=== PATIENT | female | born 1965 | race Caucasian/White ===

== ENCOUNTER 2025-01-26 11:07 | Inpatient (IN) ==
[2025-01-26] MEDS ORDERED: IOPAMIDOL 100 ML BOTTLE IV ONE (11:08)
[2025-01-26] MEDS: LORazepam 2 MG/ML VIAL IV ONE (11:38)
[2025-01-26 12:07] LABS: Alcohol, Blood 50.9 mg/dL; Alcohol,Blood 0.051 gm/dL (<0.010)
[2025-01-26 12:10] LABS: ALT/SGPT 49 U/L (<40); AST/SGOT 66 U/L (<32); Albumin 2.4 gm/dL (3.2-5.2); Albumin/Globulin Ratio 0.5 (1.0-2.3); Alkaline Phosphatase 139 U/L (39-117); Bilirubin,Total 6.5 mg/dL (0.1-1.0); Blood Urea Nitrogen 14 mg/dL (6-20); Calcium 8.3 mg/dL (8.6-10.4); Carbon Dioxide 18 mmol/L (22-30); Chloride 103 mmol/L (96-108); Globulin 5.3 gm/dL (2.2-3.7); Glomerular Filtration Rate 62; Glucose 174 mg/dL (70-105); Potassium 3.7 mmol/L (3.3-5.1); Sodium 138 mmol/L (133-145)
[2025-01-26] MEDS: FUROSEMIDE 40 MG/4 ML VIAL IV ONE (12:19)
[2025-01-26 12:22] LABS: Basophils # (Auto) 0.02 K/mcL (0.00-0.30); Basophils % (Auto) 0.5 % (0.0-2.0); Eosinophils # (Auto) 0.01 K/mcL (0.00-0.70); Eosinophils % (Auto) 0.2 % (0.0-7.0); Hemoglobin 8.5 g/dL (11.2-15.7); Lymphocytes # (Auto) 1.27 K/mcL (1.50-4.80); Lymphocytes % (Auto) 30.2 % (15.5-49.0); Mean Cell Volume 132.7 fL (80.0-100.0); Mean Corpuscular HGB Conc 30.4 g/dL (31.0-36.0); Mean Platelet Volume 12.1 fL (8.8-12.5); Monocytes # (Auto) 0.54 K/mcL (0.10-0.90); Monocytes % (Auto) 12.9 % (1.0-12.0); Platelet Count 57 K/mcL (140-440); RBC 2.11 M/mcL (3.59-5.38); Red Cell Distribution Width 18.1 % (11.5-14.5); WBC 4.2 K/mcL (4.5-11.0)
[2025-01-26 12:44] LABS: INR 2.4 (0.9-1.1)
[2025-01-26] MEDS: MAGNESIUM OXIDE 400 MG TABLET PO ONE (14:20)
[2025-01-26] MEDS: THIAMINE 300 MG in 0.9 % SODIUM CHLORIDE 50 ML IV ONE (14:20)
[2025-01-26 14:33] LABS: Appearance,Urine Clear (Clear); Bacteria,Urine 0 /hpf (0); Bilirubin,Urine Negative (Negative); Color,Urine Yellow; Glucose,Urine (UA) Negative (Negative); Ketones,Urine Negative (Negative); Leukocyte Esterase,Urine Negative /uL (Negative); Nitrate,Urine Negative (Negative); PH,Urine 5.5 (5.0-9.0); Protein,Urine Negative (Negative); Specific Gravity,Urine <= 1.005 (1.000-1.035); Urine Blood Trace-lysed ery/mcL (Negative); Urine RBC 0 /hpf (0-3); Urine Squamous Epithelial Cell 2 /hpf (0-4); Urine WBC 2 /hpf (0-4); Urobilinogen,Urine Normal
[2025-01-26] MEDS: ALBUMIN HUMAN 37.5 GM/150 ML IV ONE (16:11)
[2025-01-26] MEDS: LACTULOSE 20 GM/30 ML ORAL.SOL PO SCH (17:51)
[2025-01-26] MEDS: GABAPENTIN 300 MG CAPSULE PO SCH (17:51)
[2025-01-26 17:57] LABS: pH,Body Fluid 7.67
[2025-01-26 18:18] LABS: Amylase,Peritoneal Fluid 6 U/L; Glucose,Peritoneal Fluid 166 mg/dL; LDH,Peritoneal Fluid 45 U/L; Total Protein,Peritoneal Fluid 0.6 gm/dL
[2025-01-26 18:51] LABS: Monocyte,Peritoneal Fluid 42 %; Neutrophils,Peritoneal Fluid 2 %; RBC,Peritoneal Fluid <50,000 /cumm
[2025-01-26] MEDS ORDERED: DIAZEPAM 10 MG/2 ML SYRINGE IV PRN (19:40)
[2025-01-26] MEDS: BACLOFEN 10 MG TABLET PO PRN (20:13)
[2025-01-26] MEDS: LORazepam 1 MG TABLET PO ONE (20:13)
[2025-01-26] MEDS ORDERED: 0.9 % SODIUM CHLORIDE 10 ML SYRINGE IV SCH (22:00)
[2025-01-26] MEDS: 0.9 % SODIUM CHLORIDE 10 ML SYRINGE IV SCH (22:04)
[2025-01-27 06:52] LABS: INR 3.1 (0.9-1.1); Prothrombin Time 34.7 sec (11.9-14.5)
[2025-01-27 06:58] LABS: Basophils # (Auto) 0 K/mcL (0.00-0.30); Basophils % (Auto) 0 % (0.0-2.0); Eosinophils # (Auto) 0.02 K/mcL (0.00-0.70); Eosinophils % (Auto) 0.9 % (0.0-7.0); Hematocrit 20.7 % (34.1-44.9); Hemoglobin 6.3 g/dL (11.2-15.7); Lymphocytes # (Auto) 0.88 K/mcL (1.50-4.80); Lymphocytes % (Auto) 37.8 % (15.5-49.0); Mean Corpuscular HGB Conc 30.4 g/dL (31.0-36.0); Mean Platelet Volume 11.2 fL (8.8-12.5); Monocytes # (Auto) 0.26 K/mcL (0.10-0.90); Monocytes % (Auto) 11.2 % (1.0-12.0); Neutrophils % (Auto) 49.7 % (38.0-78.0); Platelet Count 38 K/mcL (140-440); RBC 1.58 M/mcL (3.59-5.38); Red Cell Distribution Width 18.3 % (11.5-14.5); WBC 2.3 K/mcL (4.5-11.0)
[2025-01-27 07:03] LABS: ALT/SGPT 36 U/L (<40); AST/SGOT 60 U/L (<32); Albumin 2.1 gm/dL (3.2-5.2); Albumin/Globulin Ratio 0.6 (1.0-2.3); Alkaline Phosphatase 95 U/L (39-117); Bilirubin,Direct 2.3 mg/dL (<0.3); Bilirubin,Total 7.1 mg/dL (0.1-1.0); Blood Urea Nitrogen 14 mg/dL (6-20); Calcium 8.1 mg/dL (8.6-10.4); Carbon Dioxide 25 mmol/L (22-30); Chloride 107 mmol/L (96-108); Globulin 3.7 gm/dL (2.2-3.7); Glomerular Filtration Rate 70; Glucose 117 mg/dL (70-105); Lactate Dehydrogenase 303 U/L (135-225); Phosphorous 3.1 mg/dL (2.5-4.5); Potassium 3.5 mmol/L (3.3-5.1); Sodium 140 mmol/L (133-145); Triglycerides 56 mg/dL (<150); Uric Acid 12.5 mg/dL (2.5-8.0)
[2025-01-27 08:34] LABS: Hematocrit 22.1 % (34.1-44.9); Hemoglobin 6.6 g/dL (11.2-15.7)
[2025-01-27] MEDS: MAGNESIUM SULFATE 1 GM/100 ML BAG IV SCH (08:40)
[2025-01-27] MEDS: THIAMINE 100 MG in 0.9 % SODIUM CHLORIDE 50 ML IV SCH (08:40)
[2025-01-27] MEDS: PANTOPRAZOLE 40 MG VIAL IV SCH (08:40)
[2025-01-27] MEDS: MULTIVIT,THER IRON,CA,FA & MIN 1 TABLET PO SCH (08:41)
[2025-01-27] MEDS: FOLIC ACID 1 MG TABLET PO SCH (08:41)
[2025-01-27] MEDS: SPIRONOLACTONE 25 MG TABLET PO SCH (08:41)
[2025-01-27] MEDS: FUROSEMIDE 40 MG/4 ML VIAL IV SCH (08:41)
[2025-01-27] MEDS: 0.9 % SODIUM CHLORIDE 250 ML IV SCH ×2 (10:44)
[2025-01-27] MEDS: PHYTONADIONE 10 MG in 0.9 % SODIUM CHLORIDE 50 ML IV ONE (13:57)
[2025-01-27] MEDS: FUROSEMIDE 40 MG/4 ML VIAL IV ONE (20:59)
[2025-01-27 22:04] LABS: Hematocrit 24.8 % (34.1-44.9); Hemoglobin 7.5 g/dL (11.2-15.7)
[2025-01-28] MEDS: LORazepam 1 MG TABLET PO PRN (00:45)
[2025-01-28] MEDS: ONDANSETRON 4 MG/2 ML VIAL IV PRN (05:33)
[2025-01-28 06:54] LABS: INR 2.9 (0.9-1.1)
[2025-01-28 07:04] LABS: ALT/SGPT 30 U/L (<40); AST/SGOT 47 U/L (<32); Albumin 1.9 gm/dL (3.2-5.2); Albumin/Globulin Ratio 0.5 (1.0-2.3); Alkaline Phosphatase 108 U/L (39-117); Bilirubin,Direct 2.3 mg/dL (<0.3); Bilirubin,Total 6.8 mg/dL (0.1-1.0); Blood Urea Nitrogen 14 mg/dL (6-20); Calcium 7.8 mg/dL (8.6-10.4); Carbon Dioxide 23 mmol/L (22-30); Chloride 107 mmol/L (96-108); Globulin 3.9 gm/dL (2.2-3.7); Glomerular Filtration Rate 70; Glucose 148 mg/dL (70-105); Lactate Dehydrogenase 318 U/L (135-225); Phosphorous 2.6 mg/dL (2.5-4.5); Potassium 3.7 mmol/L (3.3-5.1); Sodium 138 mmol/L (133-145); Triglycerides 54 mg/dL (<150); Uric Acid 12.2 mg/dL (2.5-8.0)
[2025-01-28 07:56] LABS: Basophils # (Auto) 0.02 K/mcL (0.00-0.30); Basophils % (Auto) 0.7 % (0.0-2.0); Eosinophils # (Auto) 0.03 K/mcL (0.00-0.70); Eosinophils % (Auto) 1.1 % (0.0-7.0); Hematocrit 23.5 % (34.1-44.9); Hemoglobin 7.3 g/dL (11.2-15.7); Lymphocytes # (Auto) 1.25 K/mcL (1.50-4.80); Lymphocytes % (Auto) 46.5 % (15.5-49.0); Mean Cell Volume 122.4 fL (80.0-100.0); Mean Corpuscular HGB Conc 31.1 g/dL (31.0-36.0); Mean Platelet Volume 12.8 fL (8.8-12.5); Monocytes # (Auto) 0.23 K/mcL (0.10-0.90); Monocytes % (Auto) 8.6 % (1.0-12.0); Neutrophils % (Auto) 42.7 % (38.0-78.0); Platelet Count 41 K/mcL (140-440); RBC 1.92 M/mcL (3.59-5.38); WBC 2.7 K/mcL (4.5-11.0)
[2025-01-28] MEDS: GABAPENTIN 300 MG CAPSULE PO ONE (09:39)
[2025-01-28] MEDS: GABAPENTIN 300 MG CAPSULE PO SCH (16:02)
[2025-01-28] MEDS: FUROSEMIDE 40 MG/4 ML VIAL IV ONE (17:51)
[2025-01-29 07:27] LABS: INR 2.4 (0.9-1.1); Prothrombin Time 28.6 sec (11.9-14.5)
[2025-01-29 07:29] LABS: Basophils # (Auto) 0.02 K/mcL (0.00-0.30); Basophils % (Auto) 0.7 % (0.0-2.0); Eosinophils # (Auto) 0.03 K/mcL (0.00-0.70); Eosinophils % (Auto) 1.1 % (0.0-7.0); Hematocrit 27.3 % (34.1-44.9); Hemoglobin 8.1 g/dL (11.2-15.7); Lymphocytes # (Auto) 1.15 K/mcL (1.50-4.80); Lymphocytes % (Auto) 42.8 % (15.5-49.0); Mean Cell Volume 129.4 fL (80.0-100.0); Mean Corpuscular HGB Conc 29.7 g/dL (31.0-36.0); Mean Platelet Volume 12.2 fL (8.8-12.5); Monocytes # (Auto) 0.28 K/mcL (0.10-0.90); Monocytes % (Auto) 10.4 % (1.0-12.0); Neutrophils % (Auto) 44.6 % (38.0-78.0); Platelet Count 44 K/mcL (140-440); RBC 2.11 M/mcL (3.59-5.38); Red Cell Distribution Width 24.9 % (11.5-14.5); WBC 2.7 K/mcL (4.5-11.0)
[2025-01-29 07:34] LABS: ALT/SGPT 27 U/L (<40); AST/SGOT 44 U/L (<32); Albumin 2.1 gm/dL (3.2-5.2); Albumin/Globulin Ratio 0.5 (1.0-2.3); Alkaline Phosphatase 126 U/L (39-117); Bilirubin,Direct 2.3 mg/dL (<0.3); Bilirubin,Total 6.4 mg/dL (0.1-1.0); Blood Urea Nitrogen 16 mg/dL (6-20); Calcium 8.2 mg/dL (8.6-10.4); Carbon Dioxide 24 mmol/L (22-30); Chloride 106 mmol/L (96-108); Globulin 4.2 gm/dL (2.2-3.7); Glomerular Filtration Rate 50; Glucose 122 mg/dL (70-105); Lactate Dehydrogenase 330 U/L (135-225); Phosphorous 3.1 mg/dL (2.5-4.5); Potassium 3.9 mmol/L (3.3-5.1); Sodium 139 mmol/L (133-145); Triglycerides 54 mg/dL (<150); Uric Acid 12.2 mg/dL (2.5-8.0)
[2025-01-29 08:33] LABS: Albumin 2.1 gm/dL (3.2-5.2)
[2025-01-29] MEDS ORDERED: ALBUMIN HUMAN 25 GM/100 ML BAG IV SCH (09:00)
[2025-01-29] MEDS: LACTULOSE 20 GM/30 ML ORAL.SOL PO SCH ×3 (11:03→21:07)
[2025-01-29] MEDS: ALBUMIN HUMAN 25 GM/100 ML BAG IV SCH (11:04)
[2025-01-29 11:12] LABS: Glucose,Peritoneal Fluid 138 mg/dL; LDH,Peritoneal Fluid 50 U/L; Total Protein,Peritoneal Fluid 0.7 gm/dL
[2025-01-29 12:13] LABS: Mesothelial,Peritoneal Fluid 21 %; Monocyte,Peritoneal Fluid 59 %; Neutrophils,Peritoneal Fluid 4 %; Nucleated Cel,Peritoneal Fluid 118 /cumm; RBC,Peritoneal Fluid <50,000 /cumm
[2025-01-29] MEDS: LACTULOSE 20 GM/30 ML ORAL.SOL PO ONE ×2 (14:39→18:51)
[2025-01-29 18:10] LABS: Blood Urea Nitrogen 16 mg/dL (6-20); Calcium 8.7 mg/dL (8.6-10.4); Carbon Dioxide 26 mmol/L (22-30); Chloride 107 mmol/L (96-108); Glomerular Filtration Rate 62; Glucose 121 mg/dL (70-105); Potassium 3.9 mmol/L (3.3-5.1); Sodium 141 mmol/L (133-145)
[2025-01-29] MEDS ORDERED: LACTULOSE 20 GM/30 ML ORAL.SOL PO SCH (21:00)
[2025-01-29] MEDS: MIDODRINE 5 MG TABLET PO SCH (21:06)
[2025-01-29] MEDS: 0.9 % SODIUM CHLORIDE 1,000 ML IV SCH (21:30)
[2025-01-29] MEDS: OCTREOTIDE ACETATE 500 MCG in 0.9 % SODIUM CHLORIDE 499.5 ML IV SCH (22:26)
[2025-01-30] MEDS: OCTREOTIDE ACETATE 500 MCG in 0.9 % SODIUM CHLORIDE 499.5 ML IV SCH (04:09)
[2025-01-30 07:46] LABS: Basophils # (Auto) 0.01 K/mcL (0.00-0.30); Basophils % (Auto) 0.5 % (0.0-2.0); Eosinophils # (Auto) 0.03 K/mcL (0.00-0.70); Eosinophils % (Auto) 1.5 % (0.0-7.0); Hematocrit 24.7 % (34.1-44.9); Hemoglobin 7.4 g/dL (11.2-15.7); Lymphocytes % (Auto) 35.2 % (15.5-49.0); Mean Cell Volume 125.4 fL (80.0-100.0); Mean Platelet Volume 12.2 fL (8.8-12.5); Monocytes # (Auto) 0.19 K/mcL (0.10-0.90); Monocytes % (Auto) 9.5 % (1.0-12.0); Neutrophils % (Auto) 53.3 % (38.0-78.0); Platelet Count 45 K/mcL (140-440); RBC 1.97 M/mcL (3.59-5.38); Red Cell Distribution Width 24.8 % (11.5-14.5)
[2025-01-30 07:47] LABS: Prothrombin Time 33.4 sec (11.9-14.5)
[2025-01-30] MEDS: LACTULOSE 20 GM/30 ML ORAL.SOL PO SCH (08:26)
[2025-01-30 08:47] LABS: ALT/SGPT 20 U/L (<40); AST/SGOT 33 U/L (<32); Albumin 2.7 gm/dL (3.2-5.2); Albumin/Globulin Ratio 0.9 (1.0-2.3); Alkaline Phosphatase 80 U/L (39-117); Bilirubin,Direct 1.8 mg/dL (<0.3); Bilirubin,Total 6.6 mg/dL (0.1-1.0); Blood Urea Nitrogen 13 mg/dL (6-20); Calcium 8.6 mg/dL (8.6-10.4); Carbon Dioxide 24 mmol/L (22-30); Chloride 109 mmol/L (96-108); Globulin 3.1 gm/dL (2.2-3.7); Glomerular Filtration Rate 81; Glucose 123 mg/dL (70-105); Lactate Dehydrogenase 247 U/L (135-225); Phosphorous 3.1 mg/dL (2.5-4.5); Potassium 3.7 mmol/L (3.3-5.1); Sodium 142 mmol/L (133-145); Triglycerides 46 mg/dL (<150); Uric Acid 11.7 mg/dL (2.5-8.0)
[2025-01-30] MEDS: ALBUMIN HUMAN 25 GM/100 ML BAG IV SCH (09:38)
[2025-01-30] MEDS: MIDODRINE 5 MG TABLET PO SCH (09:39)
[2025-01-30] MEDS: CHLORHEXIDINE GLUCONATE 15 ML UDC SSP SCH (11:03)
[2025-01-31 06:48] LABS: Basophils # (Auto) 0.02 K/mcL (0.00-0.30); Basophils % (Auto) 0.8 % (0.0-2.0); Eosinophils # (Auto) 0.02 K/mcL (0.00-0.70); Eosinophils % (Auto) 0.8 % (0.0-7.0); Hematocrit 24.9 % (34.1-44.9); Hemoglobin 7.2 g/dL (11.2-15.7); Lymphocytes # (Auto) 0.87 K/mcL (1.50-4.80); Lymphocytes % (Auto) 34.8 % (15.5-49.0); Mean Cell Volume 132.4 fL (80.0-100.0); Mean Corpuscular HGB Conc 28.9 g/dL (31.0-36.0); Mean Platelet Volume 12.2 fL (8.8-12.5); Monocytes # (Auto) 0.24 K/mcL (0.10-0.90); Monocytes % (Auto) 9.6 % (1.0-12.0); Neutrophils % (Auto) 53.6 % (38.0-78.0); Platelet Count 51 K/mcL (140-440); RBC 1.88 M/mcL (3.59-5.38); Red Cell Distribution Width 24.8 % (11.5-14.5); WBC 2.5 K/mcL (4.5-11.0)
[2025-01-31 07:28] LABS: INR 2.9 (0.9-1.1)
[2025-01-31 07:30] LABS: ALT/SGPT 19 U/L (<40); AST/SGOT 32 U/L (<32); Albumin 3.1 gm/dL (3.2-5.2); Alkaline Phosphatase 82 U/L (39-117); Bilirubin,Direct 1.5 mg/dL (<0.3); Bilirubin,Total 5.5 mg/dL (0.1-1.0); Blood Urea Nitrogen 14 mg/dL (6-20); Calcium 8.8 mg/dL (8.6-10.4); Carbon Dioxide 22 mmol/L (22-30); Chloride 108 mmol/L (96-108); Glomerular Filtration Rate 81; Glucose 147 mg/dL (70-105); Lactate Dehydrogenase 284 U/L (135-225); Phosphorous 2.2 mg/dL (2.5-4.5); Potassium 4.3 mmol/L (3.3-5.1); Sodium 142 mmol/L (133-145); Triglycerides 40 mg/dL (<150); Uric Acid 11.1 mg/dL (2.5-8.0)
[2025-01-31] MEDS ORDERED: LACTULOSE 20 GM/30 ML ORAL.SOL PO PRN (08:41)
[2025-01-31] MEDS: FUROSEMIDE 40 MG TABLET PO SCH (09:12)
[2025-01-31] MEDS: SPIRONOLACTONE 25 MG TABLET PO SCH (09:12)
[2025-01-31] MEDS: MIDODRINE 5 MG TABLET PO SCH (09:12)
[2025-01-31] MEDS: RIFAXIMIN 550 MG TABLET PO SCH (09:18)
[2025-01-31] MEDS: prednisoLONE 15 MG/5 ML ORAL SOL PO SCH (09:50)
[2025-01-31 14:42] LABS: Hematocrit 25.9 % (34.1-44.9); Hemoglobin 7.5 g/dL (11.2-15.7)
[2025-01-31] MEDS: OCTREOTIDE ACETATE 100 MCG/ML VIAL SQ SCH (15:22)
[2025-01-31 16:31] LABS: Mesothelial,Peritoneal Fluid 12 %; Nucleated Cel,Peritoneal Fluid 100 /cumm
[2025-02-01 06:51] LABS: Basophils # (Auto) 0.02 K/mcL (0.00-0.30); Basophils % (Auto) 0.6 % (0.0-2.0); Eosinophils # (Auto) 0.01 K/mcL (0.00-0.70); Eosinophils % (Auto) 0.3 % (0.0-7.0); Hematocrit 23.3 % (34.1-44.9); Hemoglobin 6.9 g/dL (11.2-15.7); Lymphocytes # (Auto) 0.88 K/mcL (1.50-4.80); Lymphocytes % (Auto) 26.2 % (15.5-49.0); Mean Cell Volume 128.7 fL (80.0-100.0); Mean Corpuscular HGB Conc 29.6 g/dL (31.0-36.0); Mean Platelet Volume 11.5 fL (8.8-12.5); Monocytes # (Auto) 0.38 K/mcL (0.10-0.90); Monocytes % (Auto) 11.3 % (1.0-12.0); Neutrophils % (Auto) 61.3 % (38.0-78.0); Platelet Count 49 K/mcL (140-440); RBC 1.81 M/mcL (3.59-5.38); Red Cell Distribution Width 24.2 % (11.5-14.5); WBC 3.4 K/mcL (4.5-11.0)
[2025-02-01 07:00] LABS: ALT/SGPT 22 U/L (<40); AST/SGOT 38 U/L (<32); Albumin 3.2 gm/dL (3.2-5.2); Alkaline Phosphatase 77 U/L (39-117); Bilirubin,Direct 1.3 mg/dL (<0.3); Bilirubin,Total 5.1 mg/dL (0.1-1.0); Blood Urea Nitrogen 17 mg/dL (6-20); Calcium 9.1 mg/dL (8.6-10.4); Carbon Dioxide 26 mmol/L (22-30); Chloride 109 mmol/L (96-108); Globulin 3.3 gm/dL (2.2-3.7); Glomerular Filtration Rate 100; Glucose 142 mg/dL (70-105); Lactate Dehydrogenase 360 U/L (135-225); Phosphorous 1.9 mg/dL (2.5-4.5); Potassium 4.3 mmol/L (3.3-5.1); Sodium 143 mmol/L (133-145); Triglycerides 44 mg/dL (<150); Uric Acid 11.1 mg/dL (2.5-8.0)
[2025-02-01] MEDS: NEUTRA PHOS 1 PACKET PO SCH (08:19)
[2025-02-01] MEDS: THIAMINE 100 MG TABLET PO SCH (08:20)
[2025-02-01] MEDS: 0.9 % SODIUM CHLORIDE 250 ML IV SCH (10:10)
[2025-02-01] MEDS: LACTULOSE 20 GM/30 ML ORAL.SOL PO SCH (21:07)
[2025-02-02 04:07] LABS: Amphetamine Screen,Urine None detected; Barbiturate Screen,Urine None detected; Benzodiazepines Screen,Urine Suspect positive; Cannabinoid Screen,Urine Suspect Positive; Cocaine Screen,Urine None detected; Fentanyl, Urine Screen None Detected; Opiate Screen,Urine None detected; Oxycodone, Urine Screen None detected; Phencyclidine Screen,Urine None detected
[2025-02-02 06:44] LABS: ALT/SGPT 25 U/L (<40); AST/SGOT 43 U/L (<32); Albumin 2.9 gm/dL (3.2-5.2); Albumin/Globulin Ratio 0.8 (1.0-2.3); Alkaline Phosphatase 88 U/L (39-117); Bilirubin,Direct 1.4 mg/dL (<0.3); Bilirubin,Total 4.5 mg/dL (0.1-1.0); Blood Urea Nitrogen 18 mg/dL (6-20); Calcium 8.9 mg/dL (8.6-10.4); Carbon Dioxide 26 mmol/L (22-30); Chloride 107 mmol/L (96-108); Globulin 3.5 gm/dL (2.2-3.7); Glomerular Filtration Rate 95; Glucose 112 mg/dL (70-105); Lactate Dehydrogenase 340 U/L (135-225); Phosphorous 2.7 mg/dL (2.5-4.5); Potassium 4.3 mmol/L (3.3-5.1); Sodium 140 mmol/L (133-145); Triglycerides 43 mg/dL (<150); Uric Acid 10.9 mg/dL (2.5-8.0)
[2025-02-02 07:24] LABS: Basophils # (Auto) 0.01 K/mcL (0.00-0.30); Basophils % (Auto) 0.3 % (0.0-2.0); Eosinophils # (Auto) 0.03 K/mcL (0.00-0.70); Eosinophils % (Auto) 0.8 % (0.0-7.0); Hematocrit 25.6 % (34.1-44.9); Hemoglobin 7.7 g/dL (11.2-15.7); Lymphocytes # (Auto) 1.24 K/mcL (1.50-4.80); Lymphocytes % (Auto) 34.2 % (15.5-49.0); Mean Cell Volume 124.3 fL (80.0-100.0); Mean Corpuscular HGB Conc 30.1 g/dL (31.0-36.0); Mean Platelet Volume 11.8 fL (8.8-12.5); Monocytes # (Auto) 0.37 K/mcL (0.10-0.90); Monocytes % (Auto) 10.2 % (1.0-12.0); Neutrophils % (Auto) 54.2 % (38.0-78.0); Platelet Count 40 K/mcL (140-440); RBC 2.06 M/mcL (3.59-5.38); WBC 3.6 K/mcL (4.5-11.0)
[2025-02-02] MEDS: FUROSEMIDE 40 MG/4 ML VIAL IV SCH (07:55)
[2025-02-03 06:19] LABS: Basophils # (Auto) 0.02 K/mcL (0.00-0.30); Basophils % (Auto) 0.7 % (0.0-2.0); Eosinophils # (Auto) 0.02 K/mcL (0.00-0.70); Eosinophils % (Auto) 0.7 % (0.0-7.0); Hematocrit 24.4 % (34.1-44.9); Hemoglobin 7.5 g/dL (11.2-15.7); Lymphocytes # (Auto) 0.95 K/mcL (1.50-4.80); Lymphocytes % (Auto) 35.2 % (15.5-49.0); Mean Corpuscular HGB Conc 30.7 g/dL (31.0-36.0); Monocytes % (Auto) 11.1 % (1.0-12.0); Neutrophils % (Auto) 52.3 % (38.0-78.0); Platelet Count 41 K/mcL (140-440); Red Cell Distribution Width 24.5 % (11.5-14.5); WBC 2.7 K/mcL (4.5-11.0)
[2025-02-03 06:36] LABS: ALT/SGPT 37 U/L (<40); AST/SGOT 56 U/L (<32); Albumin 2.8 gm/dL (3.2-5.2); Albumin/Globulin Ratio 0.8 (1.0-2.3); Alkaline Phosphatase 96 U/L (39-117); Bilirubin,Direct 1.4 mg/dL (<0.3); Bilirubin,Total 3.7 mg/dL (0.1-1.0); Blood Urea Nitrogen 20 mg/dL (6-20); Calcium 8.6 mg/dL (8.6-10.4); Carbon Dioxide 29 mmol/L (22-30); Chloride 103 mmol/L (96-108); Globulin 3.3 gm/dL (2.2-3.7); Glomerular Filtration Rate 81; Glucose 108 mg/dL (70-105); Lactate Dehydrogenase 352 U/L (135-225); Phosphorous 3.5 mg/dL (2.5-4.5); Potassium 4.3 mmol/L (3.3-5.1); Sodium 139 mmol/L (133-145); Triglycerides 38 mg/dL (<150); Uric Acid 11.3 mg/dL (2.5-8.0)
[2025-02-03] MEDS ORDERED: FUROSEMIDE 40 MG/4 ML VIAL IV SCH ×3 (09:00→16:00)
[2025-02-03] MEDS: acetaZOLAMIDE SOD 500 MG VIAL IV SCH (09:05)
[2025-02-03] MEDS: FUROSEMIDE 40 MG/4 ML VIAL IV SCH (10:12)
[2025-02-04 06:43] LABS: INR 2.5 (0.9-1.1); Prothrombin Time 28.8 sec (11.9-14.5)
[2025-02-04 08:34] LABS: ALT/SGPT 41 U/L (<40); AST/SGOT 54 U/L (<32); Albumin 2.7 gm/dL (3.2-5.2); Albumin/Globulin Ratio 0.8 (1.0-2.3); Alkaline Phosphatase 82 U/L (39-117); Bilirubin,Direct 1.5 mg/dL (<0.3); Bilirubin,Total 3.2 mg/dL (0.1-1.0); Blood Urea Nitrogen 24 mg/dL (6-20); Carbon Dioxide 26 mmol/L (22-30); Chloride 104 mmol/L (96-108); Globulin 3.2 gm/dL (2.2-3.7); Glomerular Filtration Rate 81; Glucose 103 mg/dL (70-105); Lactate Dehydrogenase 313 U/L (135-225); Phosphorous 4.2 mg/dL (2.5-4.5); Potassium 3.9 mmol/L (3.3-5.1); Sodium 139 mmol/L (133-145); Triglycerides 38 mg/dL (<150); Uric Acid 12.6 mg/dL (2.5-8.0)
[2025-02-04 09:35] LABS: Basophils # (Auto) 0 K/mcL (0.00-0.30); Basophils % (Auto) 0 % (0.0-2.0); Eosinophils # (Auto) 0.02 K/mcL (0.00-0.70); Eosinophils % (Auto) 0.8 % (0.0-7.0); Hematocrit 23.5 % (34.1-44.9); Hemoglobin 7.4 g/dL (11.2-15.7); Lymphocytes # (Auto) 0.96 K/mcL (1.50-4.80); Lymphocytes % (Auto) 37.6 % (15.5-49.0); Mean Cell Volume 117.5 fL (80.0-100.0); Mean Corpuscular HGB Conc 31.5 g/dL (31.0-36.0); Mean Platelet Volume 13.7 fL (8.8-12.5); Monocytes # (Auto) 0.26 K/mcL (0.10-0.90); Monocytes % (Auto) 10.2 % (1.0-12.0); Neutrophils % (Auto) 50.2 % (38.0-78.0); Platelet Count 31 K/mcL (140-440); Red Cell Distribution Width 22.2 % (11.5-14.5); WBC 2.6 K/mcL (4.5-11.0)
[2025-02-04] MEDS: acetaZOLAMIDE SOD 500 MG VIAL IV ONE (11:12)
[2025-02-04] MEDS: FUROSEMIDE 40 MG/4 ML VIAL IV ONE (16:12)
[2025-02-05 06:07] LABS: Basophils # (Auto) 0 K/mcL (0.00-0.30); Basophils % (Auto) 0 % (0.0-2.0); Eosinophils # (Auto) 0 K/mcL (0.00-0.70); Eosinophils % (Auto) 0 % (0.0-7.0); Hemoglobin 7.8 g/dL (11.2-15.7); Lymphocytes # (Auto) 0.58 K/mcL (1.50-4.80); Mean Corpuscular HGB Conc 31.2 g/dL (31.0-36.0); Mean Platelet Volume 12.7 fL (8.8-12.5); Monocytes # (Auto) 0.23 K/mcL (0.10-0.90); Monocytes % (Auto) 9.1 % (1.0-12.0); Neutrophils % (Auto) 67.5 % (38.0-78.0); Platelet Count 35 K/mcL (140-440); Red Cell Distribution Width 21.4 % (11.5-14.5); WBC 2.5 K/mcL (4.5-11.0)
[2025-02-05 06:16] LABS: ALT/SGPT 51 U/L (<40); AST/SGOT 60 U/L (<32); Albumin 2.7 gm/dL (3.2-5.2); Albumin/Globulin Ratio 0.8 (1.0-2.3); Alkaline Phosphatase 95 U/L (39-117); Bilirubin,Direct 1.5 mg/dL (<0.3); Bilirubin,Total 3.3 mg/dL (0.1-1.0); Blood Urea Nitrogen 30 mg/dL (6-20); Calcium 8.9 mg/dL (8.6-10.4); Carbon Dioxide 23 mmol/L (22-30); Chloride 106 mmol/L (96-108); Globulin 3.6 gm/dL (2.2-3.7); Glomerular Filtration Rate 70; Glucose 137 mg/dL (70-105); Lactate Dehydrogenase 314 U/L (135-225); Phosphorous 5.1 mg/dL (2.5-4.5); Potassium 3.8 mmol/L (3.3-5.1); Sodium 139 mmol/L (133-145); Triglycerides 39 mg/dL (<150); Uric Acid 13.4 mg/dL (2.5-8.0)
[2025-02-05] MEDS: FUROSEMIDE 40 MG TABLET PO SCH (10:26)
[2025-02-06 04:47] LABS: Alprazolam, Urine Negative (Cutoff=100); Clonazepam, Urine Negative (Cutoff=100); Flurazepam, Urine Negative (Cutoff=100); Lorazepam Confirm, Urine 1561 ng/mL (Cutoff=100); Lorazepam, Urine Positive; Midazolam, Urine Negative (Cutoff=100); Nordiazepam, Urine Negative (Cutoff=100); Oxazepam, Urine Negative (Cutoff=100); Temazepam, Urine Negative (Cutoff=100); Triazolam, Urine Negative (Cutoff=100)
[2025-02-06 06:21] LABS: ALT/SGPT 69 U/L (<40); AST/SGOT 76 U/L (<32); Albumin 2.8 gm/dL (3.2-5.2); Albumin/Globulin Ratio 0.8 (1.0-2.3); Alkaline Phosphatase 129 U/L (39-117); Bilirubin,Direct 1.6 mg/dL (<0.3); Bilirubin,Total 3.1 mg/dL (0.1-1.0); Blood Urea Nitrogen 28 mg/dL (6-20); Calcium 8.7 mg/dL (8.6-10.4); Carbon Dioxide 23 mmol/L (22-30); Chloride 106 mmol/L (96-108); Globulin 3.5 gm/dL (2.2-3.7); Glomerular Filtration Rate 81; Glucose 140 mg/dL (70-105); Lactate Dehydrogenase 402 U/L (135-225); Phosphorous 3.3 mg/dL (2.5-4.5); Potassium 3.4 mmol/L (3.3-5.1); Sodium 136 mmol/L (133-145); Triglycerides 33 mg/dL (<150); Uric Acid 13.1 mg/dL (2.5-8.0)
[2025-02-06 06:29] LABS: Basophils # (Auto) 0.01 K/mcL (0.00-0.30); Basophils % (Auto) 0.4 % (0.0-2.0); Eosinophils # (Auto) 0.02 K/mcL (0.00-0.70); Eosinophils % (Auto) 0.7 % (0.0-7.0); Hematocrit 24.5 % (34.1-44.9); Hemoglobin 7.7 g/dL (11.2-15.7); Lymphocytes # (Auto) 1.03 K/mcL (1.50-4.80); Lymphocytes % (Auto) 36.4 % (15.5-49.0); Mean Cell Volume 118.4 fL (80.0-100.0); Mean Corpuscular HGB Conc 31.4 g/dL (31.0-36.0); Mean Platelet Volume 11.7 fL (8.8-12.5); Monocytes # (Auto) 0.34 K/mcL (0.10-0.90); Neutrophils % (Auto) 50.5 % (38.0-78.0); Platelet Count 32 K/mcL (140-440); RBC 2.07 M/mcL (3.59-5.38); Red Cell Distribution Width 20.9 % (11.5-14.5); WBC 2.8 K/mcL (4.5-11.0)
[2025-02-06] MEDS: LACTULOSE 20 GM/30 ML ORAL.SOL PO SCH (09:50)
[2025-02-08 09:20] LABS: Basophils # (Auto) 0.01 K/mcL (0.00-0.30); Basophils % (Auto) 0.2 % (0.0-2.0); Eosinophils # (Auto) 0.04 K/mcL (0.00-0.70); Eosinophils % (Auto) 0.9 % (0.0-7.0); Hematocrit 27.4 % (34.1-44.9); Hemoglobin 8.6 g/dL (11.2-15.7); Lymphocytes # (Auto) 1.51 K/mcL (1.50-4.80); Lymphocytes % (Auto) 34.6 % (15.5-49.0); Mean Cell Volume 117.6 fL (80.0-100.0); Mean Corpuscular HGB Conc 31.4 g/dL (31.0-36.0); Mean Platelet Volume 12.5 fL (8.8-12.5); Monocytes # (Auto) 0.38 K/mcL (0.10-0.90); Monocytes % (Auto) 8.7 % (1.0-12.0); Neutrophils % (Auto) 55.4 % (38.0-78.0); Platelet Count 46 K/mcL (140-440); RBC 2.33 M/mcL (3.59-5.38); Red Cell Distribution Width 20.7 % (11.5-14.5); WBC 4.4 K/mcL (4.5-11.0)
[2025-02-08 09:36] LABS: ALT/SGPT 78 U/L (<40); AST/SGOT 61 U/L (<32); Albumin 3.1 gm/dL (3.2-5.2); Albumin/Globulin Ratio 0.7 (1.0-2.3); Alkaline Phosphatase 144 U/L (39-117); Bilirubin,Direct 1.8 mg/dL (<0.3); Bilirubin,Total 3.7 mg/dL (0.1-1.0); Blood Urea Nitrogen 19 mg/dL (6-20); Calcium 8.8 mg/dL (8.6-10.4); Carbon Dioxide 21 mmol/L (22-30); Chloride 106 mmol/L (96-108); Globulin 4.2 gm/dL (2.2-3.7); Glomerular Filtration Rate 81; Glucose 148 mg/dL (70-105); Lactate Dehydrogenase 433 U/L (135-225); Phosphorous 2.4 mg/dL (2.5-4.5); Potassium 3.7 mmol/L (3.3-5.1); Sodium 137 mmol/L (133-145); Triglycerides 49 mg/dL (<150); Uric Acid 10.8 mg/dL (2.5-8.0)
[2025-02-09] MEDS: DIAZEPAM 10 MG/2 ML SYRINGE IV SCH (08:57)
== END 2025-02-10 09:35 | disposition home or self-care (01) | DRG 432 ==
LOC: ICU 11:07 → ED 11:07 → ICU 19:33 → MEDSUR 02-06 13:39
PROVIDERS: ADMIT Student in an Organized Health Care Education/Training Program; ATTEND Internal Medicine